=== PATIENT | female | born 1990 | race Caucasian/White ===

== ENCOUNTER 2020-10-29 22:59 | Inpatient (IN) ==
[2020-10-30] MEDS ORDERED: Buffered Lidocaine 1% SYRIN 1 ml INTRADERM ONE (00:23)
[2020-10-30] MEDS ORDERED: Lactated Ringers 1000 ml BAG 1,000 ML IV ONE ×2 (00:23→02:08)
[2020-10-30] MEDS ORDERED: OBEPIDURAL 250 ML EPIDURAL ONE (01:03)
[2020-10-30 01:05] LABS: ABS Lymphocytes 1.5 10^3/ul (1.0-4.8); ABS Monocytes 0.6 10^3/ul (0-0.8); ABS Neutrophils 9.5 10^3/ul (1.5-7.7); Eosinophil % 0.3 %; Hematocrit 33 % (35-47); Hemoglobin 11.1 g/dL (12.0-16.0); Lymphocyte % 13.2 %; Mean Corpuscular HGB Conc 34 g/dL (31-36); Mean Corpuscular Hemoglobin 27 pg (27-31); Mean Corpuscular Volume 78 fL (80-97); Platelet Count 246 10^3/uL (150-450); Red Blood Count 4.19 10^6 /uL (3.70-4.87); Red Cell Distribution Width 14 % (10-15); White Blood Count 11.7 10^3/uL (3.5-10.8)
[2020-10-30 01:31] LABS: Urine Benzodiazepine Screen None Detected (None Detect); Urine Cannabinoids Screen None Detected (None Detect); Urine Opiates Screen None Detected (None Detect)
[2020-10-30 01:32] LABS: Albumin 3.3 g/dL (3.2-5.2); Calcium 9.5 mg/dL (8.6-10.3); EGFR African American 148.7 (>60); EGFR Non-African American 122.9 (>60); Globulin 3.2 g/dL (2-4); Potassium 4.1 mmol/L (3.5-5.0); Total Bilirubin 0.6 mg/dL (0.2-1.0); Total Protein 6.5 g/dL (6.4-8.9); Uric Acid 4.9 mg/dL (2.3-6.6)
[2020-10-30] MEDS: Lactated Ringers 1000 ml BAG 1,000 ML IV SCH ×2 (02:05→06:03)
[2020-10-30] MEDS ORDERED: Sodium Citrate/Citric Acid LIQ 15 ML UDC PO PRN (02:08)
[2020-10-30] MEDS ORDERED: Lactated Ringers 1000 ml BAG 500 ML IV PRN ×2 (02:08)
[2020-10-30] MEDS ORDERED: Phenylephrine 40 mcg/mL 10mL (400mcg) SYRINGE IV PUSH PRN ×2 (02:08)
[2020-10-30 02:32] LABS: Urine Appearance Clear; Urine Bilirubin Negative (Negative); Urine Blood Negative (Negative); Urine Color Yellow; Urine Glucose 1+(50 mg/dL) (Negative); Urine Ketones Negative (Negative); Urine Nitrite Negative (Negative); Urine Protein 2+(100 mg/dL) (Negative); Urine Urobilinogen Negative (Negative)
[2020-10-30] MEDS ORDERED: Lactated Ringers 1000 ml BAG 1,000 ML IV SCH ×3 (03:00→17:00)
[2020-10-30] MEDS ORDERED: OBEPIDURAL 250 ML EPIDURAL SCH (03:00)
[2020-10-30 03:03] LABS: Urine Bacteria Absent (Absent); Urine Red Blood Cell Trace(0-2/hpf) (Absent); Urine Squamous Epithelial Cell Present (Absent); Urine White Blood Cell Trace(0-5/hpf) (Absent)
[2020-10-30] MEDS ORDERED: Oxytocin in LR 20 UNITS/1,000 ML BAG IVPB SCH ×2 (12:15→17:00)
[2020-10-30] MEDS ORDERED: ceFOXitin 2 GM IVPREMIX 2 GM/50 ML BAG ONE (14:32)
[2020-10-30] MEDS ORDERED: Chloroprocaine 3% 20 ml VIAL ONE ×2 (15:10→15:42)
[2020-10-30] MEDS ORDERED: Morphine PF AMP (0.5MG/ML) 5 MG/10 ML AMP ONE (15:34)
[2020-10-30] MEDS ORDERED: Oxytocin 10 UNITS/ML 1 ML VIAL ONE (15:36)
[2020-10-30 15:37] LABS: Albumin/Globulin Ratio 1.1 (1-3); Calcium 8.7 mg/dL (8.6-10.3); EGFR African American 128.1 (>60); EGFR Non-African American 105.9 (>60); Globulin 2.7 g/dL (2-4); Potassium 3.6 mmol/L (3.5-5.0); Total Bilirubin 0.9 mg/dL (0.2-1.0); Total Protein 5.7 g/dL (6.4-8.9); Uric Acid 4.8 mg/dL (2.3-6.6)
[2020-10-30 15:38] LABS: ABS Lymphocytes 1.4 10^3/ul (1.0-4.8); ABS Monocytes 0.8 10^3/ul (0-0.8); ABS Neutrophils 14.4 10^3/ul (1.5-7.7); Eosinophil % 0.1 %; Hematocrit 31 % (35-47); Hemoglobin 10.2 g/dL (12.0-16.0); Lymphocyte % 8.4 %; Mean Corpuscular HGB Conc 33 g/dL (31-36); Mean Corpuscular Hemoglobin 26 pg (27-31); Mean Corpuscular Volume 79 fL (80-97); Platelet Count 211 10^3/uL (150-450); Red Blood Count 3.92 10^6 /uL (3.70-4.87); Red Cell Distribution Width 14 % (10-15); White Blood Count 16.6 10^3/uL (3.5-10.8)
[2020-10-30] MEDS ORDERED: fentaNYL 100 mcg/2 ml 50 MCG/ML VIAL ONE (15:38)
[2020-10-30] MEDS ORDERED: Phenylephrine 40 mcg/mL 10mL (400mcg) SYRINGE ONE (15:40)
[2020-10-30] MEDS ORDERED: Ondansetron 4 mg VIAL 2 MG/ML 2 ml VIAL ONE (16:00)
[2020-10-30] MEDS ORDERED: Metoclopramide 5 MG/ML VIAL (10 mg) ONE (16:00)
[2020-10-30] MEDS ORDERED: Dibucaine 1% OINT 28.35 GM TUBE PR PRN (16:15)
[2020-10-30] MEDS ORDERED: Witch Hazel PAD JAR TOPICAL PRN (16:15)
[2020-10-30] MEDS ORDERED: Glycerin ADULT 2.4 gm SUPP PR PRN (16:15)
[2020-10-30] MEDS ORDERED: Naloxone 0.4 mg VIAL 0.4 mg/ml 1 ml VIAL IV PRN ×2 (16:26→16:28)
[2020-10-30] MEDS ORDERED: fentaNYL 100 mcg/2 ml 50 MCG/ML VIAL IV PRN (16:26)
[2020-10-30] MEDS ORDERED: Acetaminophen IV 1 GM/100ML 100 ML IV ONE ×2 (16:26→16:34)
[2020-10-30] MEDS ORDERED: oxyCODONE/Acetamin 5/325 mg TAB PO PRN (16:28)
[2020-10-30] MEDS ORDERED: Metoclopramide 5 MG/ML VIAL (10 mg) IV PRN (16:28)
[2020-10-30] MEDS ORDERED: Ondansetron 4 mg VIAL 2 MG/ML 2 ml VIAL IV PRN (16:28)
[2020-10-30] MEDS ORDERED: Naloxone 4 mg VIAL (10 ml) 2 MG in NS 0.9% 250 ml 250 ML IV PRN (16:28)
[2020-10-31 07:07] LABS: ABS Eosinophils 0.1 10^3/ul (0-0.6); ABS Lymphocytes 1.3 10^3/ul (1.0-4.8); ABS Monocytes 0.7 10^3/ul (0-0.8); ABS Neutrophils 12.7 10^3/ul (1.5-7.7); Eosinophil % 0.4 %; Hematocrit 28 % (35-47); Hemoglobin 9.5 g/dL (12.0-16.0); Lymphocyte % 8.8 %; Mean Corpuscular HGB Conc 34 g/dL (31-36); Mean Corpuscular Hemoglobin 27 pg (27-31); Mean Corpuscular Volume 78 fL (80-97); Mean Platelet Volume 8.7 fL (7.4-10.4); Platelet Count 217 10^3/uL (150-450); Red Cell Distribution Width 14 % (10-15); White Blood Count 14.8 10^3/uL (3.5-10.8)
[2020-11-02 08:35] VITALS: BP 136/84
== END 2020-11-02 16:35 | disposition home or self-care (01) | DRG 540 ==
LOC: MCHOBOUT 22:59 → MCHOB 10-30 00:03
PROVIDERS: ADMIT Midwife; ATTEND Midwife